=== PATIENT | female | born 1995 | race Two or more races ===

== ENCOUNTER 2024-05-26 11:20 | Emergency (ER) | payer SELFPAY ==
[2024-05-26 11:33] VITALS: BP 125/70; PULSE 61; RESP 18; TEMP 98.7; BMI 24.5
[2024-05-26] MEDS: DIPHTH,PERTUSS(ACELL),TET 0.5 ML DISP.SYRIN IM ONE (12:41)
[2024-05-26] MEDS ORDERED: DIPHTH,PERTUSS(ACELL),TET 0.5 ML DISP.SYRIN IM ONE (12:42)
== END 2024-05-26 12:58 | disposition home or self-care (01) ==
LOC: JERFT 11:20 → JER 11:20 → JERFT 12:58
PROC: 0HQGXZZ Repair Left Hand Skin, External Approach (ICD-10-PCS; principal; 2024-05-26)
PROC: 3E0234Z Introduction of Serum, Toxoid and Vaccine into Muscle, Percutaneous Approach (ICD-10-PCS; 2024-05-26)
DX: S61.211A Laceration without foreign body of left index finger without damage to nail, initial encounter (principal); W26.0XXA Contact with knife, initial encounter; Z23 Encounter for immunization
CPT/HCPCS: 90715; 99282-25

== ENCOUNTER 2024-06-05 17:36 | Emergency (ER) | payer SELFPAY ==
[2024-06-05 17:43] VITALS: BP 112/67; PULSE 64; RESP 16; TEMP 97.3; BMI 24.5
== END 2024-06-05 19:16 | disposition home or self-care (01) ==
LOC: JER 17:36 → JERFT 17:36
DX: Z48.02 Encounter for removal of sutures (principal)
CPT/HCPCS: 99281-25

== ENCOUNTER 2024-12-30 05:50 | Inpatient (IN) | payer OTHER ==
[2024-12-30] MEDS ORDERED: PHENAZOPYRIDINE HCL 100 MG TABLET (FP) ONE (10:34)
[2024-12-30] MEDS: PHENAZOPYRIDINE HCL 100 MG TABLET (FP) PO ONE (10:45)
[2024-12-30] MEDS ORDERED: HEPARIN NA (PORCINE) 5,000 UNITS/ML 1ML VIAL ONE (12:53)
[2024-12-30] MEDS ORDERED: MIDAZOLAM HCL 2 MG/2 ML SINGLE DOSE VIAL ONE (12:59)
[2024-12-30] MEDS ORDERED: PROPOFOL 20 ML ONE (13:00)
[2024-12-30] MEDS ORDERED: ROCURONIUM BROMIDE 50 MG/5 ML SYRINGE ONE ×2 (13:07→14:04)
[2024-12-30] MEDS: ceFAZolin 2 GRAM PREMIX BAG IVPB ONE ×2 (13:22)
[2024-12-30] MEDS ORDERED: PROPOFOL 40 ML ONE (13:24)
[2024-12-30] MEDS ORDERED: DEXAMETHASONE SOD PHOSPHATE 4 MG/1 ML VIAL ONE ×2 (14:04)
[2024-12-30] MEDS ORDERED: SUGAMMADEX SODIUM 200 MG/2 ML VIAL ONE (14:54)
[2024-12-30] MEDS ORDERED: ACETAMINOPHEN 325 MG TABLET (FP) PO PRN (15:30)
[2024-12-30] MEDS ORDERED: BISACODYL 5 MG TABLET.DR (FP) PO PRN (15:30)
[2024-12-30] MEDS ORDERED: oxyCODONE HCL 5 MG TABLET PO PRN (15:30)
[2024-12-30] MEDS ORDERED: LACTATED RINGERS SOLUTION 1,000 ML IV SCH (16:30)
[2024-12-30] MEDS: IBUPROFEN 800 MG/8 ML IJ IVPB PRN (18:31)
[2024-12-30] MEDS: TRANEXAMIC ACID 1000 MG/10 ML VIAL IVPUSH ONE (20:19)
[2024-12-30] MEDS: ACETAMINOPHEN 1000 MG/100 ML BAG IVPB ONE (20:20)
[2024-12-30] MEDS: ONDANSETRON 4 MG/2 ML VIAL IVPUSH PRN (20:21)
[2024-12-30] MEDS: CEFAZOLIN 2 GM in DEXTROSE 5%-WATER - 100 ML IVPB ONE (20:22)
[2024-12-30] MEDS: SIMETHICONE 80 MG TAB.CHEW (FP) PO PRN (22:24)
[2024-12-30] MEDS: DOCUSATE SODIUM 100 MG CAPSULE (FP) PO PRN (22:24)
[2024-12-30] MEDS: CEFAZOLIN 1 GM/D5W 1 GM/50 ML BAG IVPB SCH (22:24)
[2024-12-31 02:17] VITALS: RESP 18
[2024-12-31 07:23] LABS: HEMATOCRIT 29.5 % (34.1-44.9); HEMOGLOBIN 9.8 g/dL (11.2-15.7); MCHC 33.2 g/dl (32.2-35.5); MEAN CELL VOLUME 78.5 fl (79.4-94.8); MEAN PLT VOLUME 10.8 fl (9.4-12.3); PLATELET COUNT 228 x10^3/uL (182-369); RDW 13.5 % (12.1-16.5)
[2024-12-31 08:36] LABS: POTASSIUM 4.1 mmol/L (3.5-5.1)
[2024-12-31 08:50] LABS: BLOOD UREA NITROGEN 12.2 mg/dL (7-18); CALCIUM 8.9 mg/dL (8.5-10.1)
[2024-12-31 08:53] LABS: CREATININE 0.6 mg/dL (0.55-1.3)
[2024-12-31] MEDS: ENOXAPARIN NA (PORCINE) 40 MG/0.4 ML DISP.SYRIN SQ SCH (10:05)
[2024-12-31] MEDS: IBUPROFEN 600 MG TABLET (FP) PO PRN (16:59)
[2024-12-31] MEDS: ACETAMINOPHEN 325 MG TABLET (FP) PO PRN (19:11)
[2024-12-31] MEDS: FERROUS SO4 325 MG TABLET (FP) PO SCH (20:31)
[2025-01-01] MEDS: oxyCODONE HCL 5 MG TABLET PO PRN (00:03)
[2025-01-01 08:39] VITALS: BP 112/58; PULSE 59; TEMP 98
== END 2025-01-01 12:12 | disposition home or self-care (01) | DRG 743 ==
LOC: JASUSAT 05:50 → J2C 15:30 → J3W 17:22
PROVIDERS: ADMIT Obstetrics & Gynecology; ATTEND Obstetrics & Gynecology
PROC: 0UB90ZZ Excision of Uterus, Open Approach (ICD-10-PCS; principal; 2024-12-30 12:15)
PROC: 0UB00ZZ Excision of Right Ovary, Open Approach (ICD-10-PCS; 2024-12-30 12:15)
DX: D25.9 Leiomyoma of uterus, unspecified (principal); N83.201 Unspecified ovarian cyst, right side
CPT/HCPCS: 36415; 80048; 81025; 85027; 86850; 86900; 86901; 88305-TC; 94760; J1644